=== PATIENT | female | born 1985 ===

== ENCOUNTER → 2020-04-18 | Outpatient (CLI) | payer BC | END | disposition home or self-care (01) | LOC: PRENATAL 13:30 | PROVIDERS: ATTEND Obstetrics & Gynecology Maternal & Fetal Medicine | DX: O26.851 Spotting complicating pregnancy, first trimester (principal); O36.80X1 Pregnancy with inconclusive fetal viability, fetus 1; Z36.89 Encounter for other specified antenatal screening; Z3A.08 8 weeks gestation of pregnancy ==